=== PATIENT | male | born 1950 | race Caucasian/White ===

== ENCOUNTER 2024-10-30 09:46 | Emergency (ER) | payer OTHER ==
[2024-10-30 10:18] LABS: Hematocrit 44.2 % (39.6-49.0); Hemoglobin 14.9 g/dL (13.6-17.9); MCH 30.5 pg (27.0-35.0); MCHC 33.7 g/dL (32.0-36.0); MCV 90.3 fL (80-100); MPV 7.9 fL (7.6-11.3); Platelets 278 thou/uL (152-406); RBC Red Blood Cell Count 4.89 M/uL (4.33-5.43); Red Cell Distribution Width 13.2 % (12.1-15.2)
[2024-10-30 10:29] LABS: PT Prothrombin Time 10.6 SECONDS (9.4-12.5); PTT, Activated Partial Thromb 28.6 SECONDS (24.3-36.9); Protime INR 1.01
[2024-10-30] MEDS ORDERED: TDAP (DIPHTH,PERTUSS(ACELL),TET VAC) 0.5 ML VIAL IMVAC ONE (10:39)
--- NOTE | 2024-10-30 11:45 | RAD REPORT ---
EXAM: Upper Ext Angio HISTORY: deep laceration COMPARISON: None TECHNIQUE: Multiple contiguous axial images were obtained a CTA of the left upper arm with contrast. Sagittal and coronal 3-D MIP reformats were performed. FINDINGS: No evidence of active bleeding. No pseudoaneurysm. Laceration to the forearm. A hematoma is present m easuring approximately 4 cm x 2 cm x 1 cm. No active bleeding. A hematoma superficial to the muscular layer. No fracture identified. No radiopaque foreign body. Scattered mild atelectasis chroni c calcifications. IMPRESSION: No evidence of arterial injury.
[2024-10-30] MEDS ORDERED: LIDOCAINE 1% MPF 5 ML VIAL ONE (12:01)
--- NOTE | 2024-10-30 12:24 | ER ---
Nurse's Notes [facility] Name: Srinath Lomax Jr Age: 74 yrs Sex: Male : 1950 Arrival Date: 10/30/2024 Time: 09:46 Bed 14 Private MD: Diagnosis: Laceration without foreign body of left forearm Presentation: 10/30 09:54 Chief complaint: Patient states: "I was cutting the plastic piece off of a box and was ss cutting towards me and cut my arm." 1-2 inch laceration noted to L AC area. No active bleeding noted at this time. Hematoma noted to affected area. Pt had placed towels to wound en route to ER which had moderate amount of blood on them. Coronavirus screen: Client denies travel out of the [place] in the last 14 days. Ebola Screen: Patient denies exposure to infectious person. Patient denies travel to an Ebola-affected area in the 21 days before illness onset. Complicating Factors: There are no complicating factors for this patient. Onset of symptoms was October 30, 2024. 09:54 Method Of Arrival: Ambulatory 09:54 Acuity: DANNY 3 ss 09:54 Initial Sepsis Screen: Does the patient meet any 2 criteria? No. Patient's initial ph sepsis screen is negative. Does the patient have a suspected source of infection? No. Patient's initial sepsis screen is negative. Risk Assessment: Do you want to hurt yourself or someone else? Patient reports no desire to harm self or others. Historical: - Allergies: 09:57 No Known Allergies; ss - PMHx: 09:57 Hypertensive disorder; ss 10:10 Congestive heart failure; sb4 - Immunization history:: Last tetanus immunization: > 10 years ago. - Infectious Disease History:: Denies. - Social history:: Smoking status: unknown. Screenin:58 [facility] ED Fall Risk Assessment (Adult) History of falling in the last 3 months, ph including since admission No falls in past 3 months (0 pts) Confusion or Disorientation No (0 pts) Intoxicated or Sedated No (0 pts) Impaired Gait No (0 pts) Mobility Assist Device Used No (0 pt) Altered Elimination No (0 pt) Score/Fall Risk Level 0 - 2 = Low Risk Oriented to surroundings, Maintained a safe environment, Hourly rounding (assess needs \\T\\ fall precautionary measures) done. Abuse screen: Denies threats or abuse. Denies injuries from another. Nutritional screening: No deficits noted. Tuberculosis screening: No symptoms or risk factors identified. Assessment: 10:00 General: Appears in no apparent distress. Behavior is calm, cooperative. Pain: ph Complains of pain in palmar aspect of left forearm. Neuro: Level of Consciousness is awake, alert, obeys commands, Oriented to person, place, time, situation. Cardiovascular: Capillary refill < 3 seconds in bilateral fingers Patient's skin is warm and dry. Respiratory: Airway is patent Respiratory effort is even, unlabored. Derm: Skin is pink, warm \\T\\ dry. Musculoskeletal: Circulation, motion, and sensation intact. Range of motion: intact in all extremities. Injury Description: Laceration sustained to palmar aspect of left forearm is 2.6 to 7.5 cm long, was sustained less than 30 minutes ago. is bleeding no active bleeding noted. 11:13 Reassessment: Patient appears in no apparent distress at this time. Patient and/or ph family updated on plan of care and expected duration. Pain level reassessed. Patient is alert, oriented x 3, equal unlabored respirations, skin warm/dry/pink. Awaiting CT scan, SO at bedside. Vital Signs: 09:54 BP 129 / 69; Pulse 101; Resp 20; Pulse Ox 96% on R/A; Weight 140.61 kg; Height 5 ft. 11 ph in. ; Pain 7/10; 12:30 BP 127 / 68; Pulse 87; Resp 18; Temp 97.9; Pulse Ox 98% on R/A; ph 09:54 Body Mass Index 43.23 (140.61 kg, 180.34 cm) ph 09:54 Pain Scale: Adult ph ED Course: 09:46 Patient arrived in ED. mr 09:47 Suzanne West PA-C is PHCP. sb4 09:47 Torito Alanis MD is Attending Physician. sb4 09:51 Sherri Ortiz, NII is Primary Nurse. ph 09:57 Triage completed. ss 09:57 Arm band placed on right wrist. ss 10:05 Patient has correct armband on for positive identification. Bed in low position. Call ph light in reach. Side rails up X 1. Pulse ox on. NIBP on. Door closed. Noise minimized. 10:12 Initial lab(s) drawn, by me, sent to lab. Inserted saline lock: 20 gauge in right kb4 antecubital area, using aseptic technique. Blood collected. Flushed with 10 mL NS. 11:37 Upper Ext Angio In Process Unspecified. EDMS 12:33 Assist provider with laceration repair on palmar aspect of left forearm that was ph between 2.6 to 7.5 cm using sutures. Set up tray. Performed by Suzanne West PA-C Dressed with 4X4s, Sheron, Patient tolerated well. IV discontinued, intact, bleeding controlled, No redness/swelling at site. Pressure dressing applied. Administered Medications: 12:07 Drug: Boostrix Tdap IM 0.5 ml IM once; as a single dose Route: IM; Site: right deltoid; ph 12:15 Follow up: Response: (VIS) Vaccine information sheet provided today. Questions and/or ph concerns addressed. VIS edition date: Apr 27, 2021.; No adverse reaction 12:07 Drug: Lidocaine Infiltration (1 %) 5 ml 5 ml Infiltration once; to bedside Volume: 5 ph ml; Route: Infiltration; 12:15 Follow up: Response: No adverse reaction ph Medication: 11:14 Vaccine Information Statement (VIS) provided today. Questions and/or concerns ph addressed. VIS edition date: April 27, 2021. Outcome: 12:23 Discharge ordered by MD. cantrell 12:33 Discharged to home ambulatory, with significant other, ph 12:33 Condition: good 12:33 Discharge instructions given to patient, Instructed on discharge instructions, follow up and referral plans. wound care, Demonstrated understanding of instructions, follow-up care, wound care, 12:34 Patient left the ED. ph Signatures: Dispatcher [employer] EDCT Zaina Tyson, Deuce Reg mr Abeba Andino, RN RN ss Sherri Ortiz RN RN ph Suzanne West PA-C PA-C sb4 Bowen, Kayla kb4 Corrections: (The following items were deleted from the chart) 10:00 09:54 Resp 20bpm; 140.61 kg; Height 5 ft. 11 in.; BMI: 43.2; Pain 7/10, Adult; ph
--- NOTE | 2024-10-30 12:24 | EDPHYS ---
Physician Documentation [facility] Name: Srinath Lomax Jr Age: 74 yrs Sex: Male : 1950 Arrival Date: 10/30/2024 Time: 09:46 Bed 14 Private MD: ED Physician Torito Alanis HPI: 10/30 10:10 This 74 yrs old Male presents to ER via Ambulatory with complaints of Laceration To Arm.sb4 10:10 The patient has a laceration related to: working, from a knife, occurred at home, and sb4 The type of wound is a puncture. The injury was accidental. The laceration(s) is(are) located on the palmar aspect of left forearm. Onset: The symptoms/episode began/occurred just prior to arrival. Associated signs and symptoms: The patient has no apparent associated signs or symptoms. The patient has not experienced similar symptoms in the past. The patient has not recently seen a physician. Historical: - Allergies: 09:57 No Known Allergies; ss - PMHx: 09:57 Hypertensive disorder; ss 10:10 Congestive heart failure; sb4 - Immunization history:: Last tetanus immunization: > 10 years ago. - Infectious Disease History:: Denies. - Social history:: Smoking status: unknown. ROS: 10:10 Constitutional: Negative for fever, chills, and weight loss, sb4 10:10 Skin: Positive for laceration(s), of the palmar aspect of left forearm, 10:10 All other systems are negative, Exam: 10:10 Constitutional: This is a well developed, well nourished patient who is awake, alert, sb4 and in no acute distress. Head/Face: Normocephalic, atraumatic. Eyes: Extra-ocular motions intact. Periorbital areas with no swelling, redness, or edema. ENT: Mucous membranes moist. Respiratory: No increased work of breathing, no retractions or nasal flaring. 10:10 Skin: injury, laceration(s), the wound is approximately 4 cm(s), with a depth of 1 cm(s), of the palmar aspect of left forearm, that can be described as clean, no foreign body, linear, without bleeding, moderate sized hematoma medially to laceartion, Vital Signs: 09:54 BP 129 / 69; Pulse 101; Resp 20; Pulse Ox 96% on R/A; Weight 140.61 kg; Height 5 ft. 11 ph in. ; Pain 7/10; 12:30 BP 127 / 68; Pulse 87; Resp 18; Temp 97.9; Pulse Ox 98% on R/A; ph 09:54 Body Mass Index 43.23 (140.61 kg, 180.34 cm) ph 09:54 Pain Scale: Adult ph Laceration: 12:22 Wound Repair of 5cm ( 2.0in ) subcutaneous laceration to palmar aspect of left forearm. sb4 Distal neuro/vascular/tendon intact. Anesthesia: Local anesthetic administered with 5 mls of 1% lidocaine. Wound prep: Simple cleansing with hibiclenz by me, Wound irrigation with saline by me, Copious irrigation. Skin closed with 5 4-0 Prolene using simple sutures and sterile technique. Dressed with non-adherent dressing. Patient tolerated well. MDM: 09:50 Medical Screening Exam initiated sb4 12:24 Data reviewed: vital signs, nurses notes, lab test result(s), radiologic studies, and sb4 as a result, I will discharge patient. Historians other than the Patient: Spouse/Significant Other: . Care significantly affected by the following chronic conditions: Hypertension, Congestive Heart Failure. Counseling: I had a detailed discussion with the patient and/or guardian regarding the historical points, exam findings, and any diagnostic results supporting the discharge/admit diagnosis, lab results, radiology results, the need for outpatient follow up, in 10 days for suture removal, to return to the emergency department if symptoms worsen or persist or if there are any questions or concerns that arise at home. 10/30 09:57 Order name: BMP; Complete Time: 10:37 sb4 10/30 09:57 Order name: CBC w/o diff; Complete Time: 10:23 sb4 10/30 09:57 Order name: PT-INR; Complete Time: 10:34 sb4 10/30 09:57 Order name: Ptt, Activated; Complete Time: 10:34 sb4 10/30 10:00 Order name: Upper Ext Angio; Complete Time: 11:49 EDMS 10/30 09:57 Order name: Ice; Complete Time: 10:06 sb4 10/30 09:57 Order name: IV Start; Complete Time: 10:13 sb4 10/30 12:22 Order name: Wound dressing; Complete Time: 12:26 sb4 Administered Medications: 12:07 Drug: Boostrix Tdap IM 0.5 ml IM once; as a single dose Route: IM; Site: right deltoid; ph 12:15 Follow up: Response: (VIS) Vaccine information sheet provided today. Questions and/or ph concerns addressed. VIS edition date: Apr 27, 2021.; No adverse reaction 12:07 Drug: Lidocaine Infiltration (1 %) 5 ml 5 ml Infiltration once; to bedside Volume: 5 ph ml; Route: Infiltration; 12:15 Follow up: Response: No adverse reaction ph Disposition Summary: 10/30/24 12:23 Discharge Ordered Notes: Location: Home sb4 Problem: new sb4 Symptoms: have improved sb4 Condition: Stable sb4 Diagnosis - Laceration without foreign body of left forearm sb4 Followup: sb4 - With: Private Physician - When: 10 - 14 days - Reason: Staple/Suture removal Discharge Instructions: - Discharge Summary Sheet sb4 - Laceration Care, Adult, [id number] sb4 Forms: - Patient Portal Instructions sb4 - Leadership Thank You Letter sb4 Signatures: Dispatcher [employer] Abeba Magaña, RN RN ss Sherri Ortiz RN RN Suzanne Servin PA-C PA-C sb4
[2024-10-30 12:44] VITALS: BP 129/69; O2SAT 96
== END 2024-10-30 12:34 | disposition home or self-care (01) ==
LOC: ER 09:46
DX: S51.812A Laceration without foreign body of left forearm, initial encounter (principal); W26.0XXA Contact with knife, initial encounter
CPT/HCPCS: 80048; 36415; 85610; 85730; 85027; 73206; 96372; 99284; 12032; Q9967; J2003

== ENCOUNTER 2024-11-10 08:58 | Emergency (ER) | payer OTHER ==
--- NOTE | 2024-11-10 10:41 | ER ---
Nurse's Notes [facility] Name: Srinath Lomax Jr Age: 74 yrs Sex: Male : 1950 Arrival Date: 11/10/2024 Time: 08:58 Bed DX4 Private MD: Diagnosis: Wound infection, suture removal Presentation: 11/10 09:32 Chief complaint: Patient states: needs sutures removed from left forearm, site appears iw red with mild swelling , laceration occurred last Friday. Coronavirus screen: At this time, the client does not indicate any symptoms associated with coronavirus-19. Ebola Screen: No symptoms or risks identified at this time. Initial Sepsis Screen: Does the patient meet any 2 criteria? No. Patient's initial sepsis screen is negative. Does the patient have a suspected source of infection? No. Patient's initial sepsis screen is negative. Risk Assessment: Do you want to hurt yourself or someone else? Patient reports no desire to harm self or others. Onset of symptoms. 09:32 Method Of Arrival: Ambulatory iw 09:32 Acuity: DANNY 4 iw Historical: - Allergies: 09:34 No Known Allergies; iw - PMHx: 09:34 Congestive heart failure; Hypertensive disorder; iw - Immunization history:: Adult Immunizations Last tetanus immunization: up to date. - Infectious Disease History:: Denies. - Social history:: Smoking status: Patient/guardian denies using tobacco. Screenin:30 [facility] ED Fall Risk Assessment (Adult) History of falling in the last 3 months, iw including since admission No falls in past 3 months (0 pts) Confusion or Disorientation No (0 pts) Intoxicated or Sedated No (0 pts) Impaired Gait No (0 pts) Mobility Assist Device Used No (0 pt) Altered Elimination No (0 pt) Score/Fall Risk Level 0 - 2 = Low Risk Oriented to surroundings, Maintained a safe environment. Abuse screen: Denies threats or abuse. Denies injuries from another. Nutritional screening: No deficits noted. Tuberculosis screening: No symptoms or risk factors identified. Assessment: 09:35 General: Appears in no apparent distress. Behavior is calm, cooperative. Pain: Denies iw pain. Neuro: Level of Consciousness is awake, alert, obeys commands, Oriented to person, place, time, situation, Senior Accounting Clerk are equal bilaterally. Derm: Wound noted palmar aspect of left forearm. Musculoskeletal: Range of motion: intact in all extremities. 10:50 Reassessment: Patient appears in no apparent distress at this time. Patient and/or iw family updated on plan of care and expected duration. Pain level reassessed. Vital Signs: 09:32 BP 134 / 82; Pulse 100; Resp 16; Pulse Ox 93% on R/A; Weight 145.15 kg; Height 5 ft. 11 iw in. ; 09:32 Body Mass Index 44.63 (145.15 kg, 180.34 cm) iw ED Course: 09:01 Patient arrived in ED. al6 09:07 Mari Silva MD is Attending Physician. sp3 09:34 Triage completed. iw 09:34 Arm band placed on. iw 10:22 Marisol Sebastian RN is Primary Nurse. iw Administered Medications: No medications were administered Outcome: 10:41 Discharge ordered by . sp3 10:50 Discharged to home ambulatory, iw 10:50 Condition: good 10:50 Discharge instructions given to patient, Instructed on discharge instructions, follow up and referral plans. Demonstrated understanding of instructions, follow-up care, medications, Prescriptions given X 2, 10:51 Patient left the ED. iw Signatures: Marisol Sebastian RN RN iw Mari Silva MD MD sp3 Kimberley Jimenez al6
--- NOTE | 2024-11-10 10:41 | EDPHYS ---
Physician Documentation [facility] Name: Srinath Lomax Jr Age: 74 yrs Sex: Male : 1950 Arrival Date: 11/10/2024 Time: 08:58 Bed DX4 Private MD: ED Physician Mari Silva HPI: 11/10 10:33 This 74 yrs old Male presents to ER via Ambulatory with complaints of Suture Removal sp3 and infected wound. 10:33 74-year-old male with history of CHF and hypertension presents for suture removal and sp3 evaluation of left forearm wound for which she received sutures here on October 30, 3 in total. No antibiotics were given at that time and patient has not used any OTC medications or antibiotics on the site. He denies any significant pain, fever or any other symptoms. ROS otherwise negative.. Historical: - Allergies: 09:34 No Known Allergies; iw - PMHx: 09:34 Congestive heart failure; Hypertensive disorder; iw - Immunization history:: Adult Immunizations Last tetanus immunization: up to date. - Infectious Disease History:: Denies. - Social history:: Smoking status: Patient/guardian denies using tobacco. ROS: 10:34 Constitutional: Negative for fever, chills, and weight loss, Eyes: Negative for injury, sp3 pain, redness, and discharge, Neck: Negative for injury, pain, and swelling, Cardiovascular: Negative for chest pain, palpitations, and edema, Respiratory: Negative for shortness of breath, cough, wheezing, and pleuritic chest pain, Abdomen/GI: Negative for abdominal pain, nausea, vomiting, diarrhea, and constipation, Back: Negative for injury and pain, Neuro: Negative for headache, weakness, numbness, tingling, and seizure, Psych: Negative for depression, anxiety, suicide ideation, homicidal ideation, and hallucinations, Allergy/Immunology: Negative for hives, rash, and allergies, Endocrine: Negative for neck swelling, polydipsia, polyuria, polyphagia, and marked weight changes, 10:34 All other systems are negative, Exam: 10:39 Constitutional: This is a well developed, well nourished patient who is awake, alert, sp3 and in no acute distress. 10:39 Musculoskeletal/extremity: Left forearm area around the laceration erythematous consistent with probable early cellulitis. 3 sutures were removed by me.. Vital Signs: 09:32 BP 134 / 82; Pulse 100; Resp 16; Pulse Ox 93% on R/A; Weight 145.15 kg; Height 5 ft. 11 iw in. ; 09:32 Body Mass Index 44.63 (145.15 kg, 180.34 cm) MDM: 09:20 Medical Screening Exam initiated sp3 10:40 Data reviewed: vital signs, nurses notes, old medical records. ED course: 3 sutures sp3 removed by me. Will place topical antibiotic and prescribe topical and oral antibiotic for home. Follow-up with PCP.. Administered Medications: No medications were administered Disposition Summary: 11/10/24 10:41 Discharge Ordered Notes: Location: Home sp3 Condition: Stable sp3 Diagnosis - Wound infection, suture removal sp3 Followup: sp3 - With: Private Physician - When: Upon discharge from the Emergency Department - Reason: Continuance of care Discharge Instructions: - Discharge Summary Sheet sp3 - Wound Infection sp3 Forms: - Medication Reconciliation Form sp3 - Antibiotic Education sp3 - Prescription Opioid Use sp3 - Patient Portal Instructions sp3 - Leadership Thank You Letter sp3 Prescriptions: - mupirocin 2 % Topical ointment - apply 1 application TOPICAL route 3 times per day; 21 application; Refills: 0, sp3 Product Selection Permitted - Bactrim DS 800-160 mg Oral Tablet - take 1 tablet ORAL route every 12 hours for 7 days; 14 tablet; Refills: 0, sp3 Product Selection Permitted Signatures: Marisol Sebastian RN RN Mari Silva MD MD sp3
[2024-11-10 13:09] VITALS: BP 134/82; O2SAT 93
== END 2024-11-10 10:51 | disposition home or self-care (01) ==
LOC: ER 08:58
DX: Z48.02 Encounter for removal of sutures (principal); L08.9 Local infection of the skin and subcutaneous tissue, unspecified